=== PATIENT | female | born 1955 | race Caucasian/White ===

== ENCOUNTER → 2018-12-06 | Outpatient (CLI) | payer BC ==
[~2018-12-06] VITALS: Ht 162.6 cm; Wt 75.9 kg
[~2018-12-06] MED LIST: LIDOCAINE 1% INJ 20 ML 20 ML VIAL INJ ONE
--- NOTE | 2018-12-06 10:43 | Diagnostic Imaging Report ---
INDICATION: Left breast calcifications. Patient presents for stereotactic biopsy. TECHNIQUE: The patient was brought to the stereotactic suite and placed in a chair in a sitting upright position. The left breast was positioned lateral medial. Imaging of the left breast was performed. Clustered microcalcifications in the upper outer left breast were stereotactically targeted. The skin of the lateral left breast was prepped and draped in the usual sterile fashion. A small amount of 1% lidocaine was utilized for local anesthesia. An 8 gauge stereotactic needle was advanced into the left breast and place per stereotactic coordinates. A total of four core biopsies was obtained with the vacuum-assisted device. A specimen radiograph was obtained demonstrating calcifications in multiple samples, greatest in sample labeled #3. A marker clip was then deployed and hemostasis was obtained. Followup mammography demonstrates a clip in the upper left breast. The clip is somewhat more medially located, likely owing to some migration through the tract. The clustered microcalcifications previously noted appear to be mostly absent. IMPRESSION: Stereotactic biopsy of the clustered microcalcifications in the upper outer left breast, as described. Pathology results are currently pending. Dictated by: Dictated on workstation # [id number]
== END ==
LOC: RAD 08:03
PROVIDERS: ATTEND Obstetrics & Gynecology
DX: R92.0 Mammographic microcalcification found on diagnostic imaging of breast (principal)
CPT/HCPCS: 19081

== ENCOUNTER → 2021-08-23 | Outpatient (CLI) | payer OTHER ==
[2021-08-23 09:37] LABS: HEMATOCRIT 43 % (35-52); HEMOGLOBIN 14.2 g/dL (11.5-16.0); MEAN CORPUSCULAR HEMOGLOBIN 29 pg (25-34); MEAN CORPUSCULAR HGB CONC 33 g/dL (32-36); MEAN CORPUSCULAR VOLUME 87 fL (80-99); MEAN PLATELET VOLUME 11.8 fL (9.0-12.2); PLATELET COUNT 207 10^3/uL (130-400); WHITE BLOOD COUNT 5.6 10^3/uL (4.3-11.0)
[2021-08-23 11:07] LABS: BUN/CREATININE RATIO 14; CARBON DIOXIDE 24 MMOL/L (21-32); CHLORIDE 107 MMOL/L (98-107); CREATININE SERUM 0.98 MG/DL (0.60-1.30); GFR ESTIMATED 64; GLUCOSE 99 MG/DL (70-105); POTASSIUM 3.7 MMOL/L (3.6-5.0); SODIUM 144 MMOL/L (135-145)
[2021-08-23 11:08] LABS: ALANINE AMINOTRANSFERASE 13 U/L (0-55); ALBUMIN 4.7 GM/DL (3.2-4.5); ALKALINE PHOSPHATASE 68 U/L (40-136); BILIRUBIN,TOTAL 0.5 MG/DL (0.1-1.0); CALCIUM 9.9 MG/DL (8.5-10.1); TOTAL PROTEIN 7.9 GM/DL (6.4-8.2)
[2021-08-23 14:45] LABS: CHOLESTEROL 271 MG/DL (< 200); HDL CHOLESTEROL 77 MG/DL (40-60); TRIGLYCERIDES 113 MG/DL (<150); VLDL CHOLESTEROL 23 MG/DL (5-40)
== END ==
LOC: LAB FS 08:01
PROVIDERS: ATTEND Registered Nurse Emergency
DX: E03.9 Hypothyroidism, unspecified (principal)
CPT/HCPCS: 36415; 80053; 80061; 84443; 85027